=== PATIENT | female | born 1990 | race Hispanic/Latino ===

== ENCOUNTER 2020-08-01 10:19 | Outpatient (CLI) | payer MEDICARE, MEDICAID, SELFPAY ==
--- NOTE | ~2020-08-01 | MR_ITS ---
EXAMINATION: MR brain/brain stem wo/w con DATE: 08/01/2020 11:58 INDICATION: Seizure. TECHNIQUE: Magnetic resonance imaging (MRI) of the brain and brainstem was performed without and with 11 mL MultiHance intravenous contrast. Sequences included sagittal and axial T1-weighted FSE, axial diffusion-weighted FS EPI, axial T2*-weighted GRE, axial T2-weighted FLAIR Propeller, axial T2-weight ed Propeller, coronal T2-weighted FLAIR, and coronal T1-weighted 3D FSPGR. Postcontrast axial and cor onal T1-weighted FSE was obtained. Apparent diffusion coefficient (ADC) maps were created. COMPARISON: None. 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 There is no intracranial hemorrhage, acute infarction, or abnormal intr acranial mass lesion. The hippocampi are normal and symmetric. There is ex vacuo dilatation of occipi darlyn horn and posterior body of right lateral ventricle. There is mild mucosal thickening in the paran dania sinuses. The orbits are normal. The mastoid air cells are normal. IMPRESSION: 1. 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 2. 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 Reviewed, dictated and finalized at location A. IMPRESSION: 1. Chronic encephalomalacia involving right parietal-occipital region and splen ium of corpus callosum. 2. 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
[2020-08-01 11:16] LABS: Estimated Glomerular Filt Rate > 60
== END 2020-08-01 10:20 | disposition home or self-care (01) ==
PROVIDERS: Visit Provider Psychiatry & Neurology Neurology
DX: R56.9 Unspecified convulsions (principal); G93.89 Other specified disorders of brain
CPT/HCPCS: 70553; A9577

== ENCOUNTER 2025-04-06 06:22 | Emergency (ER) | payer OTHER, SELFPAY ==
--- NOTE | ~2025-04-06 | US_ITS ---
EXAMINATION: US pelvic complete w TV DATE: 04/06/2025 08:48 INDICATION: Right adnexal pain TECHNIQUE: Multiple transabdominal and endovaginal sonographic images of the pelvis were obtained. COMPARISON: None. FINDINGS: The uterus measures 8.9 x 3.7 x 4.3 cm. The endometrial complex measures 6 mm in thickness. The righ t ovary measures 5.0 x 3.9 x 2.9 cm. The left ovary measures 3.1 x 3.1 x 1.2 cm. Vascular flow identi fied in both ovaries on color Doppler. 1.8 cm anechoic cyst/dominant follicle in the left ovary. Ther e is a 3.8 x 3.6 x 2.5 cm complex cystic lesion in the right ovary with numerous anechoic cystic spac es by a reticulated/weblike pattern of internal septations and small hypoechoic regions wit hout internal vascular flow on color Doppler with appearance classic for a hemorrhagic cyst. There is trace amount of free fluid in the cul-de-sac. IMPRESSION: 1. 3.8 cm complex cystic right ovarian lesion with appearance classic for hemorrhagic cyst. Recommend 6-12 week follow-up pelvic ultrasound to document resolution. Reviewed, dictated and finalized at location [facility]. IMPRESSION: 1. 3.8 cm complex cystic right ovarian lesion with appearance classic for hemor rhagic cyst. Recommend 6-12 week follow-up pelvic ultrasound to document resolu tion.
--- OUTSIDE RECORDS SUMMARY | 2025-04-06 06:25 | XMS_ITS | Encounter Summary ---
Author Organization [facility] Address [address] [place] [address] Phone Care Team Providers Care Bilingual Speech Language Pathologist Name Role Phone Burke Bravo Primary Care Provider [phone] Miladys Urban APRN, DISC RULER OPERATOR Unavailable [phone] Reason for Visit * Reason Comments Medication Refill Encounter Details Date Type Department Care Team (Late st Contact Info) Description 06/13/2023 Refill [facility] - [place] [address] [place] [address] Miladys Urban, FAUSTO, DISC RULER OPERATOR [address] [place] [address] Medication Refill Social History Tobacco Use Types Packs/Day Years Used Date Smoking Tobacco: Every Day Smokeless Tobacco: Never Alcohol Use Standard Drinks/Week Comments Yes 0 (1 standard drink = 0.6 oz pur e alcohol) daily Comments No Sex and Gender Information Value Date Recorded Sex Assigned at Not on file Legal Sex Female 11:39 AM CDT Gender Identity Not on file Sexual Orientation Not on file documented as of this encounter Miscellaneous Notes * Telephone Encounter - Britt Orosco RN - 06/13/2023 2:42 PM CDT Medication failed the protocol, provider to review and approve the medication order if appropriate. Requested Prescriptions Pending Prescriptions Disp Refills levETIRAcetam (KEPPRA) 750 MG Tablet [Pharmacy Med Name: LEVETIRACETAM 750MG TABLETS] 120 Tablet 3 Sig: TAKE 2 TABLETS BY MOUTH TWICE DAILY Not Delegated - Anticonvulsants Excluding Benzodiazepines Protocol Failed - 06/13/2023 2:30 PM Failed - This refill cannot be delegated Passed - Visit with relevant provider in past 12 months or upcoming 90 days Recent Visits Date Type Provider Dept 12/24/22 Office Visit Miladys Urban APRN, DISC RULER OPERATOR [facility] [place] Showing recent visits within past 365 days and meeting all other requirements Future Appointments No visits were found meeting these conditions. Showing future appointments within next 90 days and meeting all other requirements documented in this encounter Plan of Treatment Not on file documented as of this encounter Visit Diagnoses Diagnosis Seizures (HCC) Other convulsions documented in this encounter Care Teams Bilingual Speech Language Pathologist Relationship Specialty Start Date End Date Burke Bravo DO [address] [address] PCP - General Internal Medicine 02/28/22 Miladys Urban APRN, DISC RULER OPERATOR [address] [place] [address] Nurse Practitioner Advanced Practice Nurse 12/24/22 documented as of this encounter
--- OUTSIDE RECORDS SUMMARY | 2025-04-06 06:25 | XMS_ITS | Encounter Summary ---
Author Organization [facility] Address [address] [place] [address] Phone Care Team Providers Care Software Tools Build Engineer Name Role Phone Burke Bravo DO Primary Care Provider [phone] Miladys Urban APRN, FOOD PRODUCTION ASSOCIATE Unavailable [phone] Reason for Visit * Reason Comments Medication Refill Encounter Details Date Type Department Care Team (Late st Contact Info) Description [facility]/08[facility] [place] [address] [place] [address] Miladys Urban, PHOTOGRAPHER, FOOD PRODUCTION ASSOCIATE [address] [place] [address] Medication Refill Social History Tobacco Use Types [...] on file Sexual Orientation Not on file COVID-19 Exposure Response Date Recorded In the last 10 days, have yo u been in contact with someone who was confirmed or suspected to have Coronavirus/COVID-19? No / Unsure 05/09/2022 11:00 AM CDT documented as of this encounter Plan of Treatment Not on file documented as of this encounter Visit Diagnoses Diagnosis Neuropathy Mononeuritis of unspecified site documented in this encounter Care Teams Software Tools Build Engineer Relationship Specialty Start Date End Date Burke Bravo DO [address] [facility] [address] [place] [address] PCP - General Internal Medicine 02/28/22 Miladys Urban APRN, FOOD PRODUCTION ASSOCIATE [address] [place] [address] Nurse Practitioner Advanced Practice Nurse 12/24/22 documented as of this encounter
--- OUTSIDE RECORDS SUMMARY | 2025-04-06 06:25 | XMS_ITS | Encounter Summary ---
Author Organization [facility] Address [address] [place] [address] Phone Care Team Providers Care Skirt Panel Assembler Name Role Phone Burke Bravo Primary Care Provider [phone] Miladys Urban APRN, WELLFIELD TECHNICIAN Unavailable [phone] Reason for Visit * Reason Comments Medication Refill Encounter Details Date Type Department Care Team (Late st Contact Info) Description 11/30/2022 Refill [facility] - [facility]rology - [place] [address] [place] [address] Miladys Urban, FAUSTO, WELLFIELD TECHNICIAN [address] [place] [address] Medication Refill Social History Tobacco Use Types [...] Telephone Encounter - Britt Orosco RN - 11/30/2022 9:11 AM CST Medication failed the protocol, provider to review and approve the medication order if appropriate. Requested Prescriptions Pending Prescriptions Disp Refills levETIRAcetam (KEPPRA) 750 MG Tablet [Pharmacy Med Name: LEVETIRACETAM 750MG TABLETS] 120 Tablet 3 Sig: TAKE 2 TABLETS BY MOUTH TWICE DAILY Not Delegated - Anticonvulsants Excluding Benzodiazepines Protocol Failed - 11/30/2022 8:25 AM Failed - This refill cannot be delegated Passed - Visit with relevant provider in past 12 months or upcoming 90 days Recent Visits Date Type Provider Dept 05/09/22 Office Visit Miladys Urban APRN, WELLFIELD TECHNICIAN [facility] [place] Showing recent visits within past 365 days and meeting all other requirements Future Appointments Date Type Provider Dept 12/24/22 Appointment Miladys Urban APRN, [facility] Showing future appointments within next 90 days and meeting all other requirements LIAN TECHNICIAN documented in this encounter Plan of Treatment Not on file documented as of this encounter Visit Diagnoses Diagnosis Seizures (HCC) Other convulsions documented in this encounter Care Teams Skirt Panel Assembler Relationship Specialty Start Date End Date Burke Bravo DO [address] [address] PCP - General Internal Medicine 02/28/22 Miladys Urban APRN, WELLFIELD TECHNICIAN [address] [place] [address] Nurse Practitioner Advanced Practice Nurse 12/24/22 documented as of this encounter
--- OUTSIDE RECORDS SUMMARY | 2025-04-06 06:25 | XMS_ITS | Encounter Summary ---
Author Organization [facility] Address [address] [place] [address] Phone Care Team Providers Care Hothouse Worker Name Role Phone Burke Bravo Primary Care Provider [phone] Miladys Urban APRN, FITNESS INSTRUCTOR Unavailable [phone] Reason for Visit * Reason Comments Medication Refill Encounter Details Date Type Department Care Team (Late st Contact Info) Description 04/08/2023 Refill [facility] - [facility]rology - [place] [address] [place] [address] Miladys Urban, FAUSTO, FITNESS INSTRUCTOR [address] [place] [address] Medication Refill Social History Tobacco Use Types [...] Telephone Encounter - Britt Orosco RN - 04/10/2023 8:50 AM CDT Medication failed the protocol, provider to review and approve the medication order if appropriate. Requested Prescriptions Pending Prescriptions Disp Refills gabapentin (NEURONTIN) 100 MG Capsule [Pharmacy Med Name: GABAPENTIN 100MG CAPSULES] 60 Capsule 3 Sig: TAKE 1 CAPSULE BY MOUTH IN THE MORNING AND AT BEDTIME Not Delegated - Anticonvulsants Excluding Benzodiazepines Protocol Failed - 04/08/2023 6:53 AM Failed - This refill cannot be delegated Passed - Visit with relevant provider in past 12 months or upcoming 90 days Recent Visits Date Type Provider Dept 12/24/22 Office Visit Miladys Urban APRN, FITNESS INSTRUCTOR [facility] 05/09/22 Office Visit Miladys Urban APRN, FITNESS INSTRUCTOR [facility] Showing recent visits within past 365 days and meeting all other requirements Future Appointments No visits were found meeting these conditions. Showing future appointments within next 90 days and meeting all other requirements documented in this encounter Plan of Treatment Not on file documented as of this encounter Visit Diagnoses Diagnosis Neuropathy Mononeuritis of unspecified site documented in this encounter Care Teams Hothouse Worker Relationship Specialty Start Date End Date Burke Bravo DO [address] [address] PCP - General Internal Medicine 02/28/22 Miladys Urban APRN, FITNESS INSTRUCTOR [address] [place] [address] Nurse Practitioner Advanced Practice Nurse 12/24/22 documented as of this encounter
--- OUTSIDE RECORDS SUMMARY | 2025-04-06 06:25 | XMS_ITS | Encounter Summary ---
Author Organization [facility] Address [address] [place] [address] Phone Care Team Providers Care Ammonia Nitrate Operator Name Role Phone Burke Bravo DO Primary Care Provider [phone] Miladys Urban APRN, DEVELOPMENT MANAGER Unavailable [phone] Reason for Visit * Reason Comments Medication Refill Encounter Details Date Type Department Care Team (Late st Contact Info) Description 09/11/2023 [facility] - [place] [address] [place] [address] Miladys Urban APRN, DEVELOPMENT MANAGER [address] [place] [address] Medication Refill Social History Tobacco Use Types [...] on file documented as of this encounter Plan of Treatment Not on file documented as of this encounter Visit Diagnoses Diagnosis Seizures (HCC) Other convulsions documented in this encounter Care Teams Ammonia Nitrate Operator Relationship Specialty Start Date End Date Burke Bravo DO [address] [address] PCP - General Internal Medicine 02/28/22 Miladys Urban APRN, DEVELOPMENT MANAGER [address] [place] [address] Nurse Practitioner Advanced Practice Nurse 12/24/22 documented as of this encounter
--- OUTSIDE RECORDS SUMMARY | 2025-04-06 06:25 | XMS_ITS | Encounter Summary ---
Author Organization [facility] Address [address] [place] [address] Phone Care Team Providers Care Wire Stripping Machine Operator Name Role Phone Burke Bravo DO Primary Care Provider [phone] Miladys Urban APRN, CONTROL OPERATOR FLOW COAT Unavailable [phone] Reason for Visit * Reason Comments Medication Refill Encounter Details Date Type Department Care Team (Late st Contact Info) Description [facility] - [place] [address] [place] [address] Miladys Urban APRN, CONTROL OPERATOR FLOW COAT [address] [place] [address] Medication Refill Social History Tobacco Use Types [...] convulsions documented in this encounter Care Teams Wire Stripping Machine Operator Relationship Specialty Start Date End Date Burke Bravo DO [address] [address] PCP - General Internal Medicine 02/28/22 Miladys Urban APRN, CONTROL OPERATOR FLOW COAT [address] [place] [address] Nurse Practitioner Advanced Practice Nurse 12/24/22 documented as of this encounter
--- OUTSIDE RECORDS SUMMARY | 2025-04-06 06:25 | XMS_ITS | Clinical Summary ---
Author Organization [facility] Address [address] [place] [address] Care Team Providers Care Sharepoint Specialist Name Role Phone Unavailable Primary Care Provider Unavailabl e Source Comments [facility],non-owned Affiliates and Associated Physician Practices is amultiple site organization consisting of ambulatory clinics and hospital sitesin [place], [place], [place]. This disclosure is being madepursuant to the Care Everywhere program and may not contain all information available regarding this patient. Last updated 18.[facility] Allergies Active Allergy Reactions Criticality Noted Date Comments Codeine Rash Low 06/09/2010 Lorazepam 06/03/2010 Medications * Be aware that medications may not be up to date on this document. Alwaysverify current medications with the patient. amlodipine (NORVASC) 5 MG tablet Take 1 Tab by mouth daily. 30 Tab 1 0 Active phenytoin ER (DILANTIN) 100 MG capsule Take 1 Cap by mouth 3 times daily. 100 Cap 5 0 Active acetaminophen (TYLENOL) 325 MG tablet Take 2 Tabs by mouth every 4 hours as needed for Fever (For temperature GREATER than 101 ). Maximum allowable Acetaminophen amount = 4 Grams / 24 hours. 0 Active levofloxacin (LEVAQUIN) 500 MG tablet Take 1 Tab by mouth daily. 2 Tab 0 0 Active Active Problems Problem Noted Date Diagnosed Date Fever 07/17/2010 Other follow-up examination(V67.59) 07/10/2010 ICH (intracerebral hemorrhage) 05/26/2010 Family History Medical History Relation Name Comments Diabetes Maternal Grandmother Non-contributory Other Relation Name Status Comments Maternal Grandmother Other Social History Tobacco Use Types Packs/Day Years Used Date Smoking Tobacco: Every Day Cigarettes 1 3 Alcohol Use Standard Drinks/Week Comments No 0 (1 standard drink = 0.6 oz pur e alcohol) Comments No Sex and Gender Information Value Date Recorded Sex Assigned at Not on file Legal Sex Female 9:16 AM PACKAGER MACHINE Gender Identity Not on file Sexual Orientation Not on file Last Filed Vital Signs Vital Sign Reading Time Taken Comments Blood Pressure 100/50 07/22/2010 3:56 PM CDT Pulse 68 07/22/2010 3:56 PM CDT Temperature 37.5 C (99.5 F) 07/22/2010 2:20 PM CDT Respiratory Rate 14 07/22/2010 3:56 PM CDT Oxygen Saturation 98% 07/22/2010 3:56 PM CDT Inhaled Oxygen Concentration 50% 07/11/2010 9 :00 AM CDT Weight 61.7 kg (136 lb) 07/06/2010 8:20 PM CDT Height 160 cm (5' 2.99) 07/06/2010 8:20 PM CDT Body Mass Index 24.1 07/06/2010 8:20 PM CDT Plan of Treatment Health Maintenance Due Date Last Done Comments HIV SCREENING 2006 HEPATITIS C SCREENING 04/30/2009 DTAP/TDAP/TD VACCINES (1 - Tdap) 2010 HEPATITIS B VACCINE (1 of 3 - 19+ 3-dose series) 2010 COVID-19 VACCINE (1 - 2023-2 5 season) 2024 DEPRESSION SCREENING 10/07/2024 INFLUENZA VACCINE (Season Ended) 2025 ZOSTER VACCINE (1 of 2) 2041 HIB VACCINE Aged Out No longer eligi ble based on patient's age to complete this topic HPV VACCINE Aged Out No longer eligi ble based on patient's age to complete this topic MENINGOCOCCAL (Group B) VACC INE SHARED DECISION-MAKING Aged Out No longer eligibl e based on patient's age to complete this topic MENINGOCOCCAL GROUPS A/C/Y/W VACCINE Aged Out No longer eligible b ased on patient's age to complete this topic PNEUMOCOCCAL VACCINE Aged Out No long er eligible based on patient's age to complete this topic Advance Directives Documents on File Type Date Recorded Patient Structures Mechanic Expl anation Adv Directive/Living Will/POA 06/26/2010 6:31 AM * Full Code (Latest Code Status on File) Date Activated Date Inactivated Comments 07/22/2010 11:21 AM 07/30/2010 12:46 AM * Full Code Date Activated Date Inactivated Comments 07/14/2010 1:36 PM 07/22/2010 11:21 AM * Full Code Date Activated Date Inactivated Comments 07/06/2010 4:52 PM 07/14/2010 1:36 PM * Full Code Date Activated Date Inactivated Comments 06/20/2010 4:37 PM 06/22/2010 6:47 AM * Full Code Date Activated Date Inactivated Comments 05/29/2010 5:22 PM 06/05/2010 5:31 AM
--- OUTSIDE RECORDS SUMMARY | 2025-04-06 06:25 | XMS_ITS | Encounter Summary ---
Author Organization [facility] Address [address] [place] [address] Phone Care Team Providers Care Engine Monitor Name Role Phone Burke Bravo Primary Care Provider [phone] Miladys Urban APRN, SCREW DRIVER OPERATOR Unavailable [phone] Reason for Visit * Reason Comments Medication Refill Encounter Details Date Type Department Care Team (Late st Contact Info) Description 09/11/2023 Refill [facility] - Neurology - [place] [address] [place] [address] Miladys Urban, FAUSTO, SCREW DRIVER OPERATOR [address] [place] [address] Medication Refill Social History Tobacco Use Types [...] Telephone Encounter - Britt Orosco RN - 09/11/2023 8:08 AM CST Medication failed the protocol, provider to review and approve the medication order if appropriate. Requested Prescriptions Pending Prescriptions Disp Refills levETIRAcetam (KEPPRA) 750 MG Tablet [Pharmacy Med Name: LEVETIRACETAM 750MG TABLETS] 120 Tablet 3 Sig: TAKE 2 TABLETS BY MOUTH TWICE DAILY Not Delegated - Anticonvulsants Excluding Benzodiazepines Protocol Failed - 09/11/2023 5:54 AM Failed - This refill cannot be delegated Passed - Visit with relevant provider in past 12 months or upcoming 90 days Recent Visits Date Type Provider Dept 12/24/22 Office Visit Miladys Urban APRN, SCREW DRIVER OPERATOR [facility] Showing recent visits within past 365 days and meeting all other requirements Future Appointments No visits were found meeting these conditions. Showing future appointments within next 90 days and meeting all other requirements NCILIATION ANALYST documented in this encounter Plan of Treatment Not on file documented as of this encounter Visit Diagnoses Diagnosis Seizures (HCC) Other convulsions documented in this encounter Care Teams Engine Monitor Relationship Specialty Start Date End Date Burke Bravo DO [address] [address] PCP - General Internal Medicine 02/28/22 Miladys Urban APRN, SCREW DRIVER OPERATOR [address] [place] [address] Nurse Practitioner Advanced Practice Nurse 12/24/22 documented as of this encounter
--- OUTSIDE RECORDS SUMMARY | 2025-04-06 06:25 | XMS_ITS | Clinical Summary ---
Author Organization [facility] Address [address] [place] [address] Phone Care Team Providers Care Director Distribution Name Role Phone Burke Bravo DO Primary Care Provider [phone] Miladys Urban APRN, CITY ASSESSOR Unavailable [phone] Allergies Active Allergy Reactions Criticality Noted Date Comments Codeine Unknown 03/08/2022 Lorazepam Unknown 03/08/2022 Medications clonazePAM (KlonoPIN) 0.5 MG Tablet Take 0.05 mg/kg/day by mouth. 1 tablet twice a day 2 02/07/2022 Active citalopram (CeleXA) 10 MG Tablet Take 10 mg by mouth daily. Active citalopram (CeleXA) 20 MG Tablet Take 20 mg by mouth daily. Active gabapentin (NEURONTIN) 100 MG CapsuleIndicati ons:Neuropathy TAKE 1 CAPSULE BY MOUTH IN THE MORNING AND AT BEDTIME 60 Capsule 3 04/10/2023 Active levETIRAcetam (KEPPRA) 750 MG TabletIndicatio ns:Seizures (HCC) TAKE 2 TABLETS BY MOUTH TWICE DAILY 120 Tablet 3 09/11/2023 Active Active Problems Problem Noted Date Diagnosed Date Seizures 12/24/2022 Social History Tobacco Use Types Packs/Day Years Used Date Smoking Tobacco: Every Day Smokeless Tobacco: Never Tobacco Cessation:Ready to Q uit: Not Asked; Counseling Given: Not Answered Alcohol Use Standard Drinks/Week Comments Yes 0 (1 standard drink = 0.6 oz pur e alcohol) daily Comments No Sex and Gender Information Value Date Recorded Sex Assigned at Not on file Legal Sex Female 11:39 AM CDT Gender Identity Not on file Sexual Orientation Not on file Last Filed Vital Signs Vital Sign Reading Time Taken Comments Blood Pressure 110/68 12/24/2022 10:28 AM CDT Pulse 85 12/24/2022 10:28 AM CDT Temperature 36 C (96.8 F) 12/24/2022 10:28 AM CDT Respiratory Rate 14 12/24/2022 10:28 AM CDT Oxygen Saturation 97% 12/24/2022 10:28 AM CDT Inhaled Oxygen Concentration - - Weight 68.5 kg (151 lb) 12/24/2022 10:28 AM CDT Height 157.5 cm (5' 2) 12/24/2022 10:28 AM CDT Body Mass Index 27.62 12/24/2022 10:28 AM CDT Plan of Treatment Health Maintenance Due Date Last Done Comments Hepatitis C Virus (HCV) Screening 1991 TdaP Immunization 1991 Hepatitis B Immunization (1 of 3 - 19+ 3-dose series) 2010 Pap Smear 2012 Cervical Cancer Screening (CCS) 2021 HPV/Cotest 2021 SARS-COV-2 Immunization ( - 2023- season) 2024 Influenza Immunization (Seas on Ended) 2025 Respiratory Syncytial Virus (RSV) Immunization (Adult) (1 - 1-dose 75+ series) 2066 Human Papillomavirus (HPV) Immunization Aged Out No longer eligible b ased on patient's age to complete this topic Meningococcal Immunization (ACWY) Aged Out No longer eligible based on patient's age to complete this topic Pneumococcal Immunization Combined Aged Out No longer eligible based on patient's age to complete this topic Rotavirus Immunization Aged Out No lo nger eligible based on patient's age to complete this topic Insurance MEDICARE C [employer] Care Teams Director Distribution Relationship Specialty Start Date End Date Burke Bravo DO [address] [address] PCP - General Internal Medicine 02/28/22 Miladys Urban APRN, CITY ASSESSOR [address] [place] [address] Nurse Practitioner Advanced Practice Nurse 12/24/22
--- OUTSIDE RECORDS SUMMARY | 2025-04-06 06:25 | XMS_ITS | Encounter Summary ---
Author Organization [facility] Address [address] [place] [address] Phone Care Team Providers Care Flame Planer Name Role Phone Burke Bravo Primary Care Provider [phone] Miladys Urban APRN, POULTRY PACKER Unavailable [phone] Reason for Visit * Reason Comments Medication Refill Encounter Details Date Type Department Care Team (Late st Contact Info) Description 03/05/2023 Refill [facility] - Neurology - [place] [address] [place] [id number] Miladys Urban, FAUSTO, POULTRY PACKER [address] [place] [address] Medication Refill Social History Tobacco Use Types [...] Telephone Encounter - Britt Orosco RN - 03/05/2023 8:15 AM CDT Medication failed the protocol, provider to review and approve the medication order if appropriate. Requested Prescriptions Pending Prescriptions Disp Refills levETIRAcetam (KEPPRA) 750 MG Tablet [Pharmacy Med Name: LEVETIRACETAM 750MG TABLETS] 120 Tablet 3 Sig: TAKE 2 TABLETS BY MOUTH TWICE DAILY Not Delegated - Anticonvulsants Excluding Benzodiazepines Protocol Failed - 03/05/2023 5:49 AM Failed - This refill cannot be delegated Passed - Visit with relevant provider in past 12 months or upcoming 90 days Recent Visits Date Type Provider Dept 12/24/22 Office Visit Miladys Urban APRN, POULTRY PACKER [facility] 05/09/22 Office Visit Miladys Urban APRN, POULTRY PACKER [facility] Showing recent visits within past 365 days and meeting all other requirements Future Appointments Date Type Provider Dept 03/26/23 Appointment Miladys Urban APRN, [facility] Showing future appointments within next 90 days and meeting all other requirements documented in this encounter Plan of Treatment Not on file documented as of this encounter Visit Diagnoses Diagnosis Seizures (HCC) Other convulsions documented in this encounter Care Teams Flame Planer Relationship Specialty Start Date End Date Burke Bravo DO [address] [address] PCP - General Internal Medicine 02/28/22 Miladys Urban APRN, POULTRY PACKER [address] [place] [address] Nurse Practitioner Advanced Practice Nurse 12/24/22 documented as of this encounter
[2025-04-06 06:48] LABS: Hematocrit 40.7 % (37.0-47.0); Hemoglobin 13.5 g/dL (12.0-15.0); Immature Granulocyte Percent A 0.4 % (0-0.5); Lymphocytes Absolute Auto 1.94 K/mm3 (0.9-3.2); Mean Corpuscular HGB Conc 33.2 g/dl (32-36); Mean Corpuscular Hemoglobin 31.7 pg (26-34); Mean Corpuscular Volume 95.5 fl (80-100); Nucleated Red Blood Cells Absolute Auto 0.000 K/mm3 (0.0-0.012); Nucleated Red Blood Cells Perc 0.0 % (0.0-0.2); Platelet Count Result 225 k/mm3 (150-375); Red Blood Count 4.26 M/mm3 (4.2-5.4); White Blood Count 13.5 K/mm3 (4.5-10.0)
[2025-04-06 06:59] LABS: Alanine Aminotransferase 43 U/L (6-35); Albumin Level 4.9 g/dL (3.5-5.1); Alkaline Phosphatase 112 U/L (38-126); Anion Gap 18 mmol/L (4-12); Aspartate Amino Transferase 66 U/L (14-36); Bilirubin,Total 0.8 mg/dL (0.2-1.3); Blood Urea Nitrogen 6 mg/dL (7-17); Calcium 9.1 mg/dL (8.4-10.2); Carbon Dioxide 17 mmol/L (22-30); Chloride 106 mmol/L (98-107); Estimated CRCL calculation 95 ml/min; Estimated Glomerular Filt Rate > 60; Glucose 151 mg/dL (65-110); Lipase 114 U/L (23-300); Potassium 3.1 mmol/L (3.4-5.0); Sodium 141 mmol/L (137-145); Total Protein 8.7 g/dL (6.3-8.2)
[2025-04-06] MEDS: ONDANSETRON INJ 4 MG/2 ML VIAL IV PUSH (07:38)
[2025-04-06] MEDS: MORPHINE SULFATE (*CRX) 4 MG/ML INJ IV PUSH (07:40)
[2025-04-06 07:43] VITALS: BP 147/86; PULSE 75; RESP 15; O2SAT 100
--- NOTE | 2025-04-06 07:43 | PC.NURSE ---
Pt unable to urinate at this time
--- NOTE | 2025-04-06 07:45 | ED.ABDPAIN ---
HPI - Abdominal Pain General Chief Complaint: Abdominal Pain Stated Complaint: pain in her groin area due to ovarian cyst Time Seen by Provider: 04/06/25 06:58 History of Present Illness HPI narrative: Patient is a 34-year-old female who presents ER with abdominal pain. Ongoing for several days. Seen at [facility] yesterday and diagnosed with ovarian torsion but she reports she walked out. Pain is intermittent. Small amount diarrhea today pick pain in right lower abdomen but also left upper quadrant. No known sick contacts. No alleviating factors. Related Data Home Medications ?Medication ?Instructions ?Recorded ?Confirmed ?Last Taken ?Type citalopram 10 mg tablet 10 mg PO DAILY 02/27/22 07/09/24 Unknown History citalopram 20 mg tablet 20 mg PO DAILY 02/27/22 07/09/24 Unknown History clonazepam 0.5 mg tablet 0.5 mg PO DAILY 02/27/22 07/09/24 Unknown History Allergies Allergy/AdvReac Type Severity Reaction Status Date / Time codeine Allergy Mild Rash Verified 04/06/25 06:27 lorazepam Allergy Mild Rash Verified 04/06/25 06:27 Review of Systems Review of Systems: All systems reviewed & are unremarkable except as noted in HPI and below Constitutional: Constitutional: Reports no additional constitutional complaints Cardiovascular: Cardiovascular: Reports no additional cardiovascular complaints Respiratory: Respiratory: Reports no additional respiratory complaints Gastrointestinal: Gastrointestinal: Reports no additional gastrointestinal complaints Genitourinary: Genitourinary: Reports no additional female genitourinary complaints [facility] Past Medical History Medical History AVM (arteriovenous malformation) Loss of balance Stroke Social History Social History Smoking packs per day: 0.5 Smoking cigarettes per day: 10.0 Smoking status: Current every day smoker Tobacco type: cigarettes Second hand tobacco smoke exposure: Yes Alcohol intake: current Drinks per week: 2 Substance use: current Substance use type: marijuana Do You Feel Safe in your Home?: Yes Lack of Transportation: No Lack of Food: Never True Current Housing: I Have Housing Concerned About Future Housing: No Difficulty Paying Gas/Electric Bills: YES Difficulty Paying for Meds: No Currently Unemployed: No Education: High School Diploma/GED Difficulty w/ Childcare or Family Care: No Living arrangements: with family Occupation/Education: unemployed Gender identity (if verbalized by the patient): Female Sexual Orientation (if Verbalized by the Patient): Straight or Heterosexual Spiritual care concerns: No Agree to blood products: Yes Exam Narrative: GENERAL: Well-appearing, well-nourished, and in no acute distress. HEAD: Normocephalic, atraumatic. ENT: Mucous membranes moist. CHEST: Clear to auscultation. No respiratory distress. HEART: Regular rate and rhythm. Normal peripheral pulses. ABDOMEN: Soft, TTP RLQ and LUQ with guarding, nondistended. EXTREMITIES: Normal range of motion. No edema. SKIN: Warm, dry, no rash. NEURO: Alert and oriented x3. PSYCH: Normal mood and affect. Course Vital Signs Vital signs: Vital Signs Pulse Rate 75 04/06/25 07:43 Respiratory Rate 15 04/06/25 07:43 Blood Pressure 147/86 H 04/06/25 07:43 Pulse Oximetry 100 04/06/25 07:43 Pulse Rate 73 04/06/25 11:23 Respiratory Rate 23 H 04/06/25 11:23 Blood Pressure 121/71 04/06/25 11:23 Pulse Oximetry 96 04/06/25 11:23 MDM - Abdominal Pain Lab Data 04/06/25 06:42 04/06/25 06:42 Labs: Lab Results 04/06/25 04/06/25 04/06/25 Range/Units 06:42 08:42 08:43 WBC 13.5 H (4.5-10.0) K/mm3 RBC 4.26 (4.2-5.4) M/mm3 Hgb 13.5 (12.0-15.0) g/dL Hct 40.7 (37.0-47.0) % MCV 95.5 (80-100) fl MCH 31.7 (26-34) pg MCHC 33.2 (32-36) g/dl RDW 13.1 (11.5-14.5) % Plt Count 225 (150-375) k/mm3 MPV 10.3 (7.4-10.4) fl Immature Gran % (Auto) 0.4 (0-0.5) % Neut % (Auto) 75.4 H (45.5-73.1) % Lymph % (Auto) 14.4 L (18.3-44.2) % Chase % (Auto) 7.0 (2.6-8.5) % Eos % (Auto) 2.0 (0-4.4) % Baso % (Auto) 0.8 (0.2-1.2) % Lymph # (Auto) 1.94 (0.9-3.2) K/mm3 Chase # (Auto) 1.0 H (0.1-0.6) K/mm3 Eos # (Auto) 0.3 (0-0.3) K/mm3 Baso # (Auto) 0.1 (0.0-0.1) K/mm3 Abs Immat Gran (auto) 0.06 H (0.00-0.031) K/mm3 Absolute Neuts (auto) 10.2 H (1.3-6.7) K/mm3 Absolute Nucleated RBC 0.000 (0.0-0.012) K/mm3 Nucleated RBC % 0.0 (0.0-0.2) % Sodium 141 (137-145) mmol/L Potassium 3.1 L (3.4-5.0) mmol/L Chloride 106 (98-107) mmol/L Carbon Dioxide 17 L (22-30) mmol/L Anion Gap 18 H (4-12) mmol/L BUN 6 L (7-17) mg/dL Creatinine 0.64 L (0.7-1.0) mg/dL Estim Creat Clear Calc 95 ml/min Estimated GFR > 60 (59 - ) Glucose 151 H (65-110) mg/dL Calcium 9.1 (8.4-10.2) mg/dL Total Bilirubin 0.8 (0.2-1.3) mg/dL AST 66 H (14-36) U/L ALT 43 H (6-35) U/L Alkaline Phosphatase 112 (38-126) U/L Total Protein 8.7 H (6.3-8.2) g/dL Albumin 4.9 (3.5-5.1) g/dL Lipase 114 (23-300) U/L Urine Color Yellow (Yellow) Urine Appearance Cloudy H (Clear) Urine pH 5.5 (5.0-9.0) Ur Specific [place] 1.030 (1.001-1.035) Urine Protein 2+ H (Negative) mg/dL Urine Glucose (UA) Trace H (Negative) mg/dL Urine Ketones 4+ H (Negative) mg/dL Ur Blood (Man) 3+ H (Negative) Urine Nitrate Negative (Negative) Urine Bilirubin Negative (Negative) Urine Urobilinogen 1.0 (<2.0) mg/dL Add Ur Microanalysis Reviewed Leukocyte Esterase Rfl 2+ H (Negative) BHAKTI/UL Urine RBC 0-2 (0-2) /hpf Urine WBC 11-20 H (0-3) /hpf Ur Squamous Epith Cells Occasional (Few) /hpf Urine Bacteria Rare /hpf Urine Casts 6-10 POC Urine HCG, Qual Negative (Negative) Imaging Data Radiologist's impression: ITS Impressions Pelvic/Transvag US 04/06/25 09:35 IMPRESSION: 1. 3.8 cm complex cystic right ovarian lesion with appearance classic for hemorrhagic cyst. Recommend 6-12 week follow-up pelvic ultrasound to document resolution. Discharge Plan Discharge Clinical Impression: Hemorrhagic cyst of right ovary, UTI (urinary tract infection) Patient Disposition: Home Condition: Stable Instructions: Antibiotic Form, Ovarian Cyst (ED), Urinary Tract Infection in Women (ED) Additional Instructions: Return to the emergency department if you develop severe abdominal pain, severe nausea and vomiting to the point where you are unable to keep down fluids, if you develop chest pain or difficulty breathing, blood in your stool, dizziness or fainting, or if you develop any other new or concerning symptoms as these could be signs of more serious medical illness. Try to stay well hydrated. Patient Language: Turkmen Prescriptions: New hydrocodone-acetaminophen 5-325 mg tablet 1 tablet PO Q6H PRN (Reason: pain) Qty: 10 0RF cephalexin 500 mg capsule 500 mg PO Q12H Qty: 10 0RF No Action meloxicam 7.5 mg tablet 7.5 mg PO DAILY Qty: 30 1RF levetiracetam 750 mg tablet See Rx Instructions .ROUTE .COMPLEX Qty: 120 2RF Dose Instruction: TAKE TWO TABLETS BY MOUTH TWICE DAILY Rx Instructions: TAKE TWO TABLETS BY MOUTH TWICE DAILY clonazepam 0.5 mg tablet 0.5 mg PO DAILY citalopram 20 mg tablet 20 mg PO DAILY citalopram 10 mg tablet 10 mg PO DAILY Follow-up/Referrals: Joseph Rasmussen MD [Physician] - 1 Week Isamar Granados, GENERAL SERVICE TECHNICIAN [Primary Care Provider] -
--- NOTE | 2025-04-06 08:05 | PC.NURSE ---
Pt to US via wheelchair at this time
[2025-04-06 08:42] VITALS: BP 137/69; PULSE 56; RESP 18; O2SAT 97
--- OUTSIDE RECORDS SUMMARY | 2025-04-06 08:43 | XMS_ITS | Encounter Summary ---
Author Organization [facility] Address [address] [place] [address] Phone Care Team Providers Care R D Manager Name Role Phone Burke Bravo Primary Care Provider [phone] Miladys Urban APRN, AUTO DAMAGE INSURANCE APPRAISER Unavailable [phone] Reason for Visit * Reason Comments Medication Refill Encounter Details Date Type Department Care Team (Late st Contact Info) Description 11/30/2022 Refill [facility] - Neurology - [place] [address] [place] [address] Miladys Urban, FAUSTO, AUTO DAMAGE INSURANCE APPRAISER [address] [place] [address] Medication Refill Social History Tobacco Use Types [...] Dept 05/09/22 Office Visit Miladys Urban APRN, AUTO DAMAGE INSURANCE APPRAISER [facility] Corey [place] Showing recent visits within past 365 days and meeting all other requirements Future Appointments Date Type Provider Dept 12/24/22 Appointment Miladys Urban APRN, [facility] Showing future appointments within next 90 days and meeting all other requirements L BALER documented in this encounter Plan of Treatment Not on file documented as of this encounter Visit Diagnoses Diagnosis Seizures (HCC) Other convulsions documented in this encounter Care Teams R D Manager Relationship Specialty Start Date End Date Burke Bravo DO [address] [address] PCP - General Internal Medicine 02/28/22 Miladys Urban APRN, AUTO DAMAGE INSURANCE APPRAISER [address] [place] [address] Nurse Practitioner Advanced Practice Nurse 12/24/22 documented as of this encounter
--- OUTSIDE RECORDS SUMMARY | 2025-04-06 08:43 | XMS_ITS | Clinical Summary ---
Author Organization [facility] Address [address] [place] [address] Care Team Providers Care Machine Shop Repair Technician Name Role Phone Unavailable Primary Care Provider Unavailabl e Source Comments [facility],non-owned Affiliates and Associated Physician Practices is amultiple site organization consisting of ambulatory clinics and hospital sitesin [place], [place], [place] and [place]. This disclosure is being madepursuant to the Care Everywhere program and may not contain all information available regarding this patient. 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
--- OUTSIDE RECORDS SUMMARY | 2025-04-06 08:43 | XMS_ITS | Encounter Summary ---
Author Organization [facility] Address [address] [place] [address] Phone Care Team Providers Care Director Shopper Marketing Name Role Phone Burke Bravo DO Primary Care Provider [phone] Miladys Urban APRN, PLSQL DEVELOPER Unavailable [phone] Reason for Visit * Reason Comments Medication Refill Encounter Details Date Type Department Care Team (Late st Contact Info) Description 12/06/20[facility] [place] [address] [place] [address] Miladys Urban APRN, PLSQL DEVELOPER [address] [place] [address] Medication Refill Social History Tobacco Use Types [...] convulsions documented in this encounter Care Teams Director Shopper Marketing Relationship Specialty Start Date End Date Burke Bravo DO [address] [address] PCP - General Internal Medicine 02/28/22 Miladys Urban APRN, PLSQL DEVELOPER [address] [place] [address] Nurse Practitioner Advanced Practice Nurse 12/24/22 documented as of this encounter
--- OUTSIDE RECORDS SUMMARY | 2025-04-06 08:43 | XMS_ITS | Encounter Summary ---
Author Organization [facility] Address [address] [place] [address] Phone Care Team Providers Care Pi/Senior Research Associate Name Role Phone Burke Bravo DO Primary Care Provider [phone] Miladys Urban APRN, SUPERVISOR MALT HOUSE Unavailable [phone] Reason for Visit * Reason Comments Medication Refill Encounter Details Date Type Department Care Team (Late st Contact Info) Description [facility] [place] [address] [place] [address] Miladys Urban APRN, SUPERVISOR MALT HOUSE [address] [place] [address] Medication Refill Social History Tobacco Use Types [...] convulsions documented in this encounter Care Teams Pi/Senior Research Associate Relationship Specialty Start Date End Date Burke Bravo DO [address] [address] PCP - General Internal Medicine 02/28/22 Miladys Urban APRN, SUPERVISOR MALT HOUSE [address] [place] [address] Nurse Practitioner Advanced Practice Nurse 12/24/22 documented as of this encounter
--- OUTSIDE RECORDS SUMMARY | 2025-04-06 08:43 | XMS_ITS | Encounter Summary ---
Author Organization [facility] Address [address] [place] [address] Phone Care Team Providers Care Vp Emerging Media Name Role Phone Burke Bravo Primary Care Provider [phone] Miladys Urban APRN, MATERNITY FLOOR SUPERVISOR Unavailable [phone] Reason for Visit * Reason Comments Medication Refill Encounter Details Date Type Department Care Team (Late st Contact Info) Description 04/08/2023 Refill [facility] - [facility]rology - [place] [address] [place] [address] Miladys Urban, FAUSTO, MATERNITY FLOOR SUPERVISOR [address] [place] [address] Medication Refill Social History Tobacco Use Types [...] Dept 12/24/22 Office Visit Miladys Urban APRN, MATERNITY FLOOR SUPERVISOR [facility] 05/09/22 Office Visit Miladys Urban APRN, MATERNITY FLOOR SUPERVISOR [facility] [place] Showing recent visits within past 365 days and meeting all other requirements Future Appointments No visits were found meeting these conditions. Showing future appointments within next 90 days and meeting all other requirements documented in this encounter Plan of Treatment Not on file documented as of this encounter Visit Diagnoses Diagnosis Neuropathy Mononeuritis of unspecified site documented in this encounter Care Teams Vp Emerging Media Relationship Specialty Start Date End Date Burke Bravo DO [address] [address] PCP - General Internal Medicine 02/28/22 Miladys Urban APRN, MATERNITY FLOOR SUPERVISOR [address] [place] [address] Nurse Practitioner Advanced Practice Nurse 12/24/22 documented as of this encounter
--- OUTSIDE RECORDS SUMMARY | 2025-04-06 08:43 | XMS_ITS | Encounter Summary ---
Author Organization [facility] Address [address] [place] [address] Phone Care Team Providers Care Sales Development Associate Name Role Phone Burke Bravo Primary Care Provider [phone] Miladys Urban APRN, FISH PEDDLER Unavailable [phone] Reason for Visit * Reason Comments Medication Refill Encounter Details Date Type Department Care Team (Late st Contact Info) Description 03/05/2023 Refill [facility] - [facility] - [place] [address] [place] [id number] Miladys Urban, FAUSTO, FISH PEDDLER [address] [place] [address] Medication Refill Social History Tobacco Use Types [...] Dept 12/24/22 Office Visit Miladys Urban APRN, FISH PEDDLER [facility] [place] 05/09/22 Office Visit Miladys Urban APRN, FISH PEDDLER [facility] Showing recent visits within past 365 days and meeting all other requirements Future Appointments Date Type Provider Dept 03/26/23 Appointment Miladys Urban APRN, [facility] Showing future appointments within next 90 days and meeting all other requirements documented in this encounter Plan of Treatment Not on file documented as of this encounter Visit Diagnoses Diagnosis Seizures (HCC) Other convulsions documented in this encounter Care Teams Sales Development Associate Relationship Specialty Start Date End Date Burke Bravo DO [address] [address] PCP - General Internal Medicine 02/28/22 Miladys Urban APRN, FISH PEDDLER [address] [place] [address] Nurse Practitioner Advanced Practice Nurse 12/24/22 documented as of this encounter
--- OUTSIDE RECORDS SUMMARY | 2025-04-06 08:43 | XMS_ITS | Encounter Summary ---
Author Organization [facility] Address [address] [place] [address] Phone Care Team Providers Care Online Marketing Specialist Name Role Phone Burke Bravo Primary Care Provider [phone] Miladys Urban APRN, MANAGER RETAIL SALES Unavailable [phone] Reason for Visit * Reason Comments Medication Refill Encounter Details Date Type Department Care Team (Late st Contact Info) Description 09/11/2023 Refill [facility] - [place] [address] [place] [address] Miladys Urban, FAUSTO, MANAGER RETAIL SALES [address] [place] [address] Medication Refill Social History Tobacco Use Types [...] Dept 12/24/22 Office Visit Miladys Urban APRN, MANAGER RETAIL SALES [facility] Showing recent visits within past 365 days and meeting all other requirements Future Appointments No visits were found meeting these conditions. Showing future appointments within next 90 days and meeting all other requirements SHOVELER documented in this encounter Plan of Treatment Not on file documented as of this encounter Visit Diagnoses Diagnosis Seizures (HCC) Other convulsions documented in this encounter Care Teams Online Marketing Specialist Relationship Specialty Start Date End Date Burke Bravo DO [address] [address] PCP - General Internal Medicine 02/28/22 Miladys Urban APRN, MANAGER RETAIL SALES [address] [place] [address] Nurse Practitioner Advanced Practice Nurse 12/24/22 documented as of this encounter
--- OUTSIDE RECORDS SUMMARY | 2025-04-06 08:43 | XMS_ITS | Encounter Summary ---
Author Organization [facility] Address [address] [place] [address] Phone Care Team Providers Care Shipping Team Leader Name Role Phone Burke Bravo DO Primary Care Provider [phone] Miladys Urban APRN, BOX OFFICE ATTENDANT Unavailable [phone] Reason for Visit * Reason Comments Medication Refill Encounter Details Date Type Department Care Team (Late st Contact Info) Description [facility] [place] [address] [place] [address] Miladys Urban, RETIREMENT SALES CONSULTANT, BOX OFFICE ATTENDANT [address] [place] [address] Medication Refill Social History Tobacco Use Types [...] site documented in this encounter Care Teams Shipping Team Leader Relationship Specialty Start Date End Date Burke Bravo DO [address] [facility] [address] [place] [address] PCP - General Internal Medicine 02/28/22 Miladys Urban APRN, BOX OFFICE ATTENDANT [address] [place] [address] Nurse Practitioner Advanced Practice Nurse 12/24/22 documented as of this encounter
--- OUTSIDE RECORDS SUMMARY | 2025-04-06 08:43 | XMS_ITS | Encounter Summary ---
Author Organization [facility] Address [address] [place] [address] Phone Care Team Providers Care Ski Instructor Name Role Phone Burke Bravo Primary Care Provider [phone] Miladys Urban APRN, ELECTRONICS ENGINEER Unavailable [phone] Reason for Visit * Reason Comments Medication Refill Encounter Details Date Type Department Care Team (Late st Contact Info) Description 06/13/2023 Refill [facility] - [place] [address] [place] [address] Miladys Urban, FAUSTO, ELECTRONICS ENGINEER [address] [place] [address] Medication Refill Social History Tobacco Use Types [...] Dept 12/24/22 Office Visit Miladys Urban APRN, ELECTRONICS ENGINEER [facility] Showing recent visits within past 365 days and meeting all other requirements Future Appointments No visits were found meeting these conditions. Showing future appointments within next 90 days and meeting all other requirements documented in this encounter Plan of Treatment Not on file documented as of this encounter Visit Diagnoses Diagnosis Seizures (HCC) Other convulsions documented in this encounter Care Teams Ski Instructor Relationship Specialty Start Date End Date Burke Bravo DO [address] [address] PCP - General Internal Medicine 02/28/22 Miladys Urban APRN, ELECTRONICS ENGINEER [address] [place] [address] Nurse Practitioner Advanced Practice Nurse 12/24/22 documented as of this encounter
--- OUTSIDE RECORDS SUMMARY | 2025-04-06 08:43 | XMS_ITS | Clinical Summary ---
Author Organization [facility] Address [address] [place] [address] Phone Care Team Providers Care Nail Specialist Name Role Phone Burke Bravo DO Primary Care Provider [phone] Miladys Urban APRN, TABLEAU ADMINISTRATOR Unavailable [phone] Allergies Active Allergy Reactions Criticality Noted Date [...] [employer] Care Teams Nail Specialist Relationship Specialty Start Date End Date Burke Bravo DO [address] [address] PCP - General Internal Medicine 02/28/22 Miladys Urban APRN, TABLEAU ADMINISTRATOR [address] [place] [address] Nurse Practitioner Advanced Practice Nurse 12/24/22
[2025-04-06 08:45] LABS: BEDSIDEPREGUCG Negative (Negative)
[2025-04-06 09:10] LABS: Add Urine Microscopic? YES; Appearance Urine Cloudy (Clear); Glucose Urine UA Trace mg/dL (Negative); Leukocyte Esterase Ur 2+ LEU/UL (Negative); Need Manual Microscopic Reviewed; Nitrate Urine Negative (Negative); Specific Grav Ur 1.030 (1.001-1.035)
[2025-04-06 11:23] VITALS: BP 121/71; PULSE 73; RESP 23; O2SAT 96
[2025-04-06 12:46] VITALS: BP 117/90; PULSE 64; RESP 22; TEMP 36.5; O2SAT 99
== END 2025-04-06 12:51 | disposition home or self-care (01) ==
PROVIDERS: Student in an Organized Health Care Education/Training Program; Emergency Provider Emergency Medicine; PCP Nurse Practitioner Family
DX: N83.201 Unspecified ovarian cyst, right side (principal); N39.0 Urinary tract infection, site not specified; Z86.73 Personal history of transient ischemic attack (TIA), and cerebral infarction without residual deficits
CPT/HCPCS: 36415; 76830; 76856; 80053; 81001; 81025; 83690; 85025; 87086; 96374; 96375; 99284; J2270; J2405